=== PATIENT | male | born 1940 ===

== ENCOUNTER 2022-07-18 18:32 | Inpatient (IN) | payer OTHER ==
[~2022-07-18] VITALS: Ht 175.3 cm; Wt 79.4 kg
[2022-07-18] MEDS ORDERED: IV NORMAL SALINE 1000 ML BAG IV ONE (19:00)
[2022-07-18] MEDS ORDERED: PANTOPRAZOLE SODIUM 40 MG VIAL IV ONE (19:00)
[2022-07-18 19:06] LABS: HEMATOCRIT 25.3 % (36.7-47.1); MEAN CORPUSCULAR HEMOGLOBIN 22.1 uug (23.8-33.4); MEAN CORPUSCULAR VOLUME 73.9 fL (73.0-96.2); PLATELET COUNT (AUTO) 285 K/uL (152-348)
[2022-07-18 19:17] LABS: LIPASE 138 U/L (73-393)
[2022-07-18 19:26] LABS: ALANINE AMINOTRANSFERASE 23 U/L (16-63); ALKALINE PHOSPHATASE 84 U/L (50-136); ASPARTATE AMINOTRANSFERASE 25 U/L (15-37); BILIRUBIN,DIRECT 0.2 mg/dL (0.0-0.2); BILIRUBIN,TOTAL 0.8 mg/dL (0.2-1.0); CARBON DIOXIDE 25 mmol/L (21-32); CHLORIDE 106 mmol/L (98-107); CREATININE 2.1 mg/dL (0.6-1.3); POTASSIUM 4.4 mmol/L (3.5-5.1); TOTAL PROTEIN, SERUM 5.4 g/dL (6.4-8.2); UREA NITROGEN, BLOOD 28 mg/dL (7-18)
[2022-07-18 19:47] LABS: GLUCOSE 518 mg/dL (74-106)
[2022-07-18] MEDS ORDERED: POTASSIUM CHLORIDE 20 MEQ TAB.PRT.SR PO ONE (20:00)
[2022-07-18] MEDS ORDERED: INSULIN REGULAR, HUMAN 300 UNIT/3 ML VIAL IV ONE (20:00)
[2022-07-18] MEDS ORDERED: INSULIN LISPRO 300 UNIT/3 ML VIAL SQ ONE (20:09)
[2022-07-18] MEDS ORDERED: PANTOPRAZOLE SODIUM 40 MG VIAL ONE (20:10)
[2022-07-18] MEDS ORDERED: INSULIN REGULAR, HUMAN 300 UNIT/3 ML VIAL ONE (20:32)
[2022-07-18] MEDS ORDERED: POTASSIUM CHLORIDE 20 MEQ TAB.PRT.SR ONE (20:34)
--- NOTE | 2022-07-18 21:41 | NUR ---
Lab called, spoke to Loli troponin is 147. Dr. Garcia made aware.
[2022-07-18] MEDS: PANTOPRAZOLE SODIUM 40 MG VIAL IV SCH (22:29)
[2022-07-18] MEDS ORDERED: MAGNESIUM HYDROXIDE 30 ML LIQUID UDC PO PRN (22:30)
[2022-07-18] MEDS ORDERED: ONDANSETRON 4 MG/2 ML VIAL IV PRN (22:30)
[2022-07-18] MEDS ORDERED: DEXTROSE 50% 50 ML DISP.SYRIN IV PRN (22:30)
[2022-07-18] MEDS ORDERED: ACETAMINOPHEN 325 MG TABLET PO PRN (22:30)
[2022-07-18] MEDS ORDERED: INSULIN REGULAR, HUMAN 300 UNITS/3 ML VIAL SQ PRN (22:30)
[2022-07-18] MEDS ORDERED: REMEDY ESSENTIAL ZINC PASTE 113 GM TP PRN (22:30)
[2022-07-18] MEDS ORDERED: ALBUMIN HUMAN 25% 50 ML IV ONE (23:15)
[2022-07-18] MEDS ORDERED: NOREPINEPHRINE BITARTRATE 32 MG in IV NORMAL SALINE 218 ML IV PRN ×2 (23:15→23:30)
--- NOTE | 2022-07-18 23:46 | NUR ---
Consent signed by ( ) agreeing to administration of blood. Patient or responsible republican informed of potential complications associated with blood transfusion. Information on unit of blood checked against patient wristband at bedside by two nurses. All information matches. Patient made aware of need to notify nurse at once if begins to experience itching, shortness of breath, flushing, feeling of impending doom, or other symptoms not previously present.
[2022-07-19] VITALS (22 sets, daily range): BP systolic 103–147; BP diastolic 55–82
--- NOTE | 2022-07-19 00:40 | NUR ---
Report given to Vee MELVIN CCU.
[2022-07-19 02:29] LABS: HEMATOCRIT 29.2 % (36.7-47.1)
[2022-07-19] MEDS ORDERED: ALBUMIN HUMAN 25% 50 ML ONE (02:29)
[2022-07-19] MEDS: IV NS 1000 ML 1,000 ML IV PRN ×3 (02:47→20:24)
--- NOTE | 2022-07-19 03:29 | NUR ---
RECEIVED REPORT FROM PRISCILLA MELVIN, PATIENT TRANSFER FROM ED [facility]IA [facility] TO [id number], COMPLETE ASSESSMENT DONE, ALL MEDS ADMINISTERED PER MD, PATIENT RESTING COMFORTABLE IN BED WITH HIS EYES CLOSED, NO ACTIVE BLEEDING AT THIS TIME, WILL CONTINUE TO MONITOR.
[2022-07-19 04:54] LABS: HEMATOCRIT 28.6 % (36.7-47.1); MEAN CORPUSCULAR VOLUME 77.8 fL (73.0-96.2); PLATELET COUNT (AUTO) 242 K/uL (152-348)
[2022-07-19 05:07] LABS: CARBON DIOXIDE 27 mmol/L (21-32); CHLORIDE 111 mmol/L (98-107); GLUCOSE 280 mg/dL (74-106); POTASSIUM 4.6 mmol/L (3.5-5.1); UREA NITROGEN, BLOOD 26 mg/dL (7-18)
[2022-07-19] MEDS: BLOOD SUGAR DIAGNOSTIC 1 EACH STRIP VI SCH ×4 (07:30→21:00)
--- NOTE | 2022-07-19 07:32 | NUR ---
REPORT GIVEN TO JACQUELINE MELVIN, TROPONIN 117, MD NOT CALL, PATIENT TRENDING DOWN.
[2022-07-19] MEDS: PANTOPRAZOLE SODIUM 40 MG VIAL IV SCH ×2 (10:25→22:08)
[2022-07-20] VITALS (22 sets, daily range): BP systolic 98–140; BP diastolic 47–91
--- NOTE | 2022-07-20 01:00 | NUR ---
Trigeminal PVC's; see strip.
[2022-07-20] MEDS: IV NS 1000 ML 1,000 ML IV PRN ×2 (04:48→12:48)
[2022-07-20 04:53] LABS: HEMATOCRIT 22.8 % (36.7-47.1); MEAN CORPUSCULAR VOLUME 78.4 fL (73.0-96.2); PLATELET COUNT (AUTO) 258 K/uL (152-348)
[2022-07-20 05:37] LABS: ALANINE AMINOTRANSFERASE 21 U/L (16-63); ALKALINE PHOSPHATASE 65 U/L (50-136); ASPARTATE AMINOTRANSFERASE 22 U/L (15-37); BILIRUBIN,TOTAL 0.8 mg/dL (0.2-1.0); CARBON DIOXIDE 25 mmol/L (21-32); CHLORIDE 114 mmol/L (98-107); GLUCOSE 178 mg/dL (74-106); MAGNESIUM 2.1 mg/dL (1.8-2.4); PHOSPHOROUS 2.8 mg/dL (2.5-4.9); POTASSIUM 4.2 mmol/L (3.5-5.1); TOTAL PROTEIN, SERUM 4.7 g/dL (6.4-8.2); UREA NITROGEN, BLOOD 19 mg/dL (7-18)
[2022-07-20 05:52] LABS: CREATINE KINASE, TOTAL 63 U/L (39-308)
[2022-07-20 05:57] LABS: CREATININE 1.6 mg/dL (0.6-1.3)
[2022-07-20] MEDS: BLOOD SUGAR DIAGNOSTIC 1 EACH STRIP VI SCH ×3 (07:30→16:49)
[2022-07-20] MEDS: PANTOPRAZOLE SODIUM 40 MG VIAL IV SCH ×2 (09:20→21:00)
[2022-07-20] MEDS: INSULIN REGULAR, HUMAN 300 UNIT/3 ML VIAL SQ PRN ×2 (09:35→12:10)
[2022-07-20] MEDS ORDERED: APIX5TAB4 PO (12:18)
[2022-07-20] MEDS ORDERED: CEPH500C2 PO (12:23)
[2022-07-20] MEDS ORDERED: LEVO88TA5 PO (12:25)
[2022-07-20] MEDS ORDERED: FURO-151 PO (12:26)
[2022-07-20] MEDS ORDERED: DABI150C PO (12:27)
[2022-07-20] MEDS ORDERED: CARV6.252 PO (12:28)
[2022-07-20] MEDS ORDERED: AMIO200T5 PO ×2 (12:31)
[2022-07-20] MEDS ORDERED: DABI75CA3 PO (15:03)
[2022-07-20] MEDS ORDERED: CARV12.52 PO (15:05)
[2022-07-20] MEDS ORDERED: AMIODARONE HCL 200 MG TABLET PO SCH (21:00)
[2022-07-20] MEDS ORDERED: CARVEDILOL 12.5 MG TABLET PO SCH (21:00)
--- NOTE | 2022-07-20 21:00 | NUR ---
REPORT GIVEN TO JOHNATHAN MELVIN
--- NOTE | 2022-07-20 21:15 | NUR ---
TX TO JOHNATHAN, INFORMED OF BLOOD INFILTRATING INTO RUE
[2022-07-21] MEDS ORDERED: NOREPINEPHRINE BITARTRATE 32 MG in IV NORMAL SALINE 218 ML IV PRN (06:00)
[2022-07-21] MEDS ORDERED: LEVOTHYROXINE SODIUM 88 MCG TABLET PO SCH (07:00)
== END 2022-07-21 07:57 | disposition short-term general hospital (02) | DRG 374 ==
LOC: ER 18:36 → CCU 22:15
PROVIDERS: ADMIT Nurse Practitioner Acute Care; ATTEND Nurse Practitioner Acute Care
PROC: 30233N1 Transfusion of Nonautologous Red Blood Cells into Peripheral Vein, Percutaneous Approach (ICD-10-PCS; principal; 2022-07-18)
DX: D37.4 Neoplasm of uncertain behavior of colon (principal); N17.0 Acute kidney failure with tubular necrosis; K92.2 Gastrointestinal hemorrhage, unspecified; I21.A1 Myocardial infarction type 2; D62 Acute posthemorrhagic anemia; E44.0 Moderate protein-calorie malnutrition; I42.9 Cardiomyopathy, unspecified; I50.22 Chronic systolic (congestive) heart failure; E87.0 Hyperosmolality and hypernatremia; E11.65 Type 2 diabetes mellitus with hyperglycemia; E86.0 Dehydration; E86.1 Hypovolemia; I25.10 Atherosclerotic heart disease of native coronary artery without angina pectoris; I48.91 Unspecified atrial fibrillation; N32.89 Other specified disorders of bladder; I11.0 Hypertensive heart disease with heart failure; E78.5 Hyperlipidemia, unspecified; E88.09 Other disorders of plasma-protein metabolism, not elsewhere classified; Z68.25 Body mass index [BMI] 25.0-25.9, adult; Z20.822 Contact with and (suspected) exposure to COVID-19; I95.9 Hypotension, unspecified; E87.8 Other disorders of electrolyte and fluid balance, not elsewhere classified
CPT/HCPCS: 36415; 71045; 83690; 83735; 83970; 84100; 84155; 84165; 84484; 85018; 85025; 85730; 86850; 86900; 86901; 86920; 93005; 93307; A4663; C9113; G0378; J1815; J7040; P9016; P9047